=== PATIENT | male | born 1945 | race Caucasian/White ===

== ENCOUNTER → 2018-11-17 13:23 | Outpatient (CLI) | payer MEDICARE, OTHER, SELFPAY ==
--- NOTE | 2018-11-17 | DI.RAD.S_ITS ---
PROCEDURE: XR CHEST 2V INDICATIONS: COUGH TECHNIQUE: 2 views of the chest were acquired. COMPARISON: [facility], , CHEST 2 VIEW, 10/13/2013, 8:48. [facility], CR, CHEST 2 VIEW, 09/18/2012, 15:49. FINDINGS: Surgical changes and devices: None. Lungs and pleura: No pleural effusions or pneumothorax. Lungs are clear. Mediastinum: Mediastinal contours are normal. Heart size is normal. Bones and chest wall: No suspicious bony abnormalities. Soft tissues appear unremarkable. IMPRESSION: Normal for age, source of current cough symptoms is not seen. Dictated by: Guy Sheridan M.D. on 11/17/2018 at 15:14 Approved by: Guy Sheridan M.D. on 11/17/2018 at 15:14
--- NOTE | 2018-11-17 | DI.MRI.S_ITS ---
PROCEDURE: MR HEAD/BRAIN WO/W CON INDICATIONS: VERTIGO/MEMORY LOSS TECHNIQUE: Noncontrast axial T1 spin echo, axial T2 fast spin echo, sagittal and axial FLAIR, coronal T2 fast spin echo, axial gradient echo, axial diffusion and ADC through the brain. After the administration of contrast, axial and coronal T1 spin echo with fat saturation through the brain. COMPARISON: [facility], MR, BRAIN WITHOUT CONTRAST, 11/18/2012, 11:32. [facility], MR, ANGIO HEAD WITHOUT CONTRAST, 11/18/2012, 11:21. FINDINGS: Image quality: Excellent. CSF spaces: Basal cisterns are patent. No extra-axial fluid collections. Ventricles are normal in size and shape. Brain: No midline shift. No intracranial bleeds or masses. No abnormal intracranial enhancement. There is cerebral volume loss for age. There is periventricular white matter chronic small vessel ischemic change. The brainstem appears normal. Diffusion-weighted images demonstrate no acute ischemic insults. No chronic ischemic insults. Normal intravascular flow voids are present. Skull and face: Calvarial marrow is normal in signal. Orbits appear normal. Note is made of bilateral lens replacements. Sinuses: Sinuses and mastoids appear clear. IMPRESSION: Unremarkable intracranial study for age. No masses or abnormal enhancement can be seen. No findings of acute or subacute infarction can be seen. Note is made of age-appropriate brain parenchymal volume loss and chronic small vessel ischemic changes. Dictated by: Trey Castano M.D. on 11/17/2018 at 15:11 Approved by: Trey Castano M.D. on 11/17/2018 at 15:13
== END ==
PROVIDERS: Family Provider Family Medicine Geriatric Medicine; PCP Family Medicine Geriatric Medicine; Visit Provider Family Medicine Geriatric Medicine
DX: H81.49 Vertigo of central origin, unspecified ear (principal); R41.82 Altered mental status, unspecified; R05 Cough; R63.4 Abnormal weight loss
CPT/HCPCS: 70553; 71046; A9579

== ENCOUNTER 2021-04-22 14:02 | Inpatient (IN) | payer MEDICARE, OTHER, SELFPAY ==
--- NOTE | 2021-04-22 16:55 | PM.HP.1 ---
History of Present Illness History of Present Illness Date Patient Seen: 04/22/21 Time Patient Seen: 16:55 Chief complaint: GI Bleed Narrative: This is a 75-year-old male with hypertension and chronic anxiety who presents with sudden onset of bright red blood when he awoke this morning. His clothing was full of blood when he sat down at the toilet. His initial hemoglobin at [facility] emergency department was 13.6. He describes 6 more episodes of bloody stool since then. There has been no abdominal pain, nausea or vomiting. He has no chest pain. He has never had this before. He uses an unclear dose of ?low dose? aspirin 3 or 4 days a week. He takes no other anticoagulants or anti-inflammatories. He drinks 1 cocktail 4-5 days a week. He denies any prior symptoms of alcohol withdrawal although his does make him admit that he becomes even more irritable than usual when he misses his cocktail. He had a rectal exam done in the emergency department which was described as showing brown stool that was heme-positive. He recalls a colonoscopy that he estimates was 5 years ago and was normal. He is quite hard of hearing. He takes citalopram for anxiety and an unknown medication for hypertension. Patient History Medical History (Updated 04/22/21 @ 16:58 by Broderick Ortiz MD) Alcohol use Anxiety Hypertension Surgical History (Updated 04/22/21 @ 16:58 by Broderick Ortiz MD) H/O eye surgery H/O lithotripsy Family & Social History Family History (Updated 04/22/21 @ 17:02 by Broderick Ortiz MD) Mother Diabetes mellitus Heart attack Father Heart attack Social History: His backup decision maker is his Rosario Michel. Dr. 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 ROS: Yes All systems reviewed with the patient and are negative except as otherwise documented Exam Narrative Exam Narrative: He is alert and oriented x3. He is in no apparent distress. He is hard of hearing. He is hyper irritable in a somewhat pleasant way. His is sitting by the bedside and she obviously has inability to be a calming influence. Pupils are equally round reactive to light and accommodation. Extraocular muscles are intact. Sclerae are pink and nonicteric Throat looks normal No lymph nodes are felt head, neck, supraclavicular area There is no thyromegaly No carotid bruits are heard Heart is regular rate and rhythm without murmur Lungs are clear to auscultation bilaterally Abdomen is soft, bowel sounds positive, nontender, no organomegaly. He is underweight. Extremities have no ankle edema Skin has no rash or jaundice Neurological exam Cranial nerves 2-12 test intact There is no asterixis There are no other stigmata of chronic liver disease Deep tendon reflexes are symmetric and normal Motor function is 5/5 throughout There is no tremor. Assessment & Plan Assessment & Plan narrative: This is a 75-year-old male with hypertension and chronic anxiety who presents with sudden onset of bright red blood when he awoke this morning. Initial hemoglobin is 13.6. Lower GI bleed, present on admission. Active. -recheck hemoglobin on arrival here and plan surgery consult if it has dropped. -keep NPO and begin IV Protonix -continue IV fluids -follow serial hemoglobins Hypertension, present on admission. Active -initial vital signs are still pending. Unclear home treatment. Hospital inpatient treatment to be determined -obtain baseline CMP Daily alcohol use, present on admission. Active. -check alcohol level and liver enzymes -consider abdominal pelvic CT scan -use lorazepam IV as needed. -use CIWA orders if needed. Chronic anxiety, present on admission. Chronic. -continue citalopram -use Lorazepam IV as needed Use sequential compression device and avoid anticoagulation due to ongoing bleeding concern.
[2021-04-22] MEDS: DEXTROSE 5%-0.9% NS 1,000 ML 100 ML IV (17:16)
[2021-04-22] MEDS: CITALOPRAM 10 MG TABLET 20 MG PO (17:17)
[2021-04-22 17:46] VITALS: BMI 24.1
[2021-04-22 18:43] LABS: Add Manual Diff / Slide Review NO; Basophils Absolute Auto 0 /uL (0-100); Basophils Percent Auto 0.2 % (0-2); Eosinophils Absolute Auto 0 /uL (0-450); Eosinophils Percent Auto 0.2 % (2-4); Hematocrit 38.4 % (41-53); Hemoglobin 12.9 g/dL (13.5-17.5); Lymphocytes Absolute Auto 1400 /uL (1100-4500); Lymphocytes Percent Auto 19.1 % (25-40); Mean Corpuscular HGB Conc 33.6 % (30-36); Mean Corpuscular Hemoglobin 30.5 PG (26-34); Mean Corpuscular Volume 90.6 fL (80-100); Monocytes Absolute Auto 600 /uL (0-900); Monocytes Percent Auto 7.3 % (3-14); Neutrophils Absolute Auto 5500 /uL (1500-7000); Neutrophils Percent Auto 73.2 % (50-75); Platelet Count 157 X10^3/uL (150-400); Red Blood Cell Count 4.24 X10^6/uL (4.5-5.9); Red Cell Distribution Width 13.2 % (11.6-14.8); White Blood Cell Count 7.5 X10^3/uL (4.5-11.0)
[2021-04-22 18:54] LABS: Ammonia (NH3) < 9 umol/L (9-30)
[2021-04-22 18:55] LABS: Alanine Aminotransferase 21 IU/L (<50); Albumin Globulin Ratio 1.1 (1.0-2.8); Alkaline Phosphatase 80 U/L (38-126); Aspartate Aminotransferase 35 IU/L (17-59); BUN Creatinine Ratio 25.6 (6-22); Bilirubin Total 0.7 mg/dL (0.2-1.3); Blood Urea Nitrogen 20 mg/dL (9-20); Calcium 9.5 mg/dL (8.4-10.2); Carbon Dioxide 25 mmol/L (22-32); Chloride 107 mmol/L (98-107); Estimated Glomerular Filt Rate > 60.0 mL/min (>60); Globulin 3.6 g/dL (1.7-4.1); Glucose 113 mg/dL (80-110); HEMOLYSIS < 15 (0-50); Magnesium 1.8 mg/dL (1.6-2.3); Potassium 4.1 mmol/L (3.4-5.1); Sodium 137 mmol/L (137-145); Total Protein 7.6 g/dL (6.3-8.2)
[2021-04-22 19:01] LABS: Ethanol (ETOH) < 10 mg/dL
[2021-04-22] MEDS: PEG3350/SOD SULF,BICARB,CL/KCL 4,000 ML SOLUTION 2000 ML PO (19:26)
[2021-04-22 20:30] VITALS: BP 138/80; PULSE 65; RESP 18; TEMP 37.1
[2021-04-22 23:38] VITALS: BP 149/85; PULSE 69; RESP 16; TEMP 36.7; O2SAT 100
[2021-04-23] VITALS (12 sets, daily range): BP systolic 124–159; BP diastolic 57–80; PULSE 53–63; RESP 15–22; TEMP 36.4–37.2; O2SAT 96–100; BMI 24.1
[2021-04-23] MEDS: DEXTROSE 5%-0.9% NS 1,000 ML 100 ML IV ×2 (03:49→15:59)
[2021-04-23 06:30] LABS: Add Manual Diff / Slide Review NO; Basophils Absolute Auto 0 /uL (0-100); Basophils Percent Auto 0.1 % (0-2); Eosinophils Absolute Auto 0 /uL (0-450); Eosinophils Percent Auto 0.4 % (2-4); Hematocrit 36.4 % (41-53); Hemoglobin 12.4 g/dL (13.5-17.5); Lymphocytes Absolute Auto 1500 /uL (1100-4500); Lymphocytes Percent Auto 20.6 % (25-40); Mean Corpuscular HGB Conc 34.1 % (30-36); Mean Corpuscular Hemoglobin 30.7 PG (26-34); Monocytes Absolute Auto 700 /uL (0-900); Monocytes Percent Auto 9.3 % (3-14); Neutrophils Absolute Auto 5000 /uL (1500-7000); Neutrophils Percent Auto 69.6 % (50-75); Platelet Count 142 X10^3/uL (150-400); Red Blood Cell Count 4.04 X10^6/uL (4.5-5.9); Red Cell Distribution Width 13.4 % (11.6-14.8); White Blood Cell Count 7.2 X10^3/uL (4.5-11.0)
[2021-04-23 06:32] LABS: Alanine Aminotransferase 18 IU/L (<50); Albumin 3.7 g/dL (3.5-5.0); Albumin Globulin Ratio 1.2 (1.0-2.8); Alkaline Phosphatase 71 U/L (38-126); Aspartate Aminotransferase 35 IU/L (17-59); BUN Creatinine Ratio 20.8 (6-22); Bilirubin Total 0.6 mg/dL (0.2-1.3); Blood Urea Nitrogen 16 mg/dL (9-20); Calcium 8.8 mg/dL (8.4-10.2); Carbon Dioxide 26 mmol/L (22-32); Chloride 109 mmol/L (98-107); Estimated Glomerular Filt Rate > 60.0 mL/min (>60); Globulin 3.2 g/dL (1.7-4.1); Glucose 124 mg/dL (80-110); HEMOLYSIS < 15 (0-50); Potassium 4.8 mmol/L (3.4-5.1); Sodium 141 mmol/L (137-145); Total Protein 6.9 g/dL (6.3-8.2)
--- NOTE | 2021-04-23 08:35 | P.CONS_ITS ---
History of Present Illness Consult details Chief complaint: GI Bleed Meds Home Medications and Allergies Home Medications Medication Instructions Recorded Confirmed Type citalopram 20 mg PO DAILY 04/22/21 04/22/21 History losartan 100 mg PO BEDTIME 04/22/21 04/22/21 History Exam Vital Signs (past 8 hours): - 04/23/21 03:24 04/23/21 07:27 Temperature 98.3 F 97.9 F Pulse Rate 62 63 Respiratory Rate 16 17 Blood Pressure 155/74 H 159/79 H Pulse Oximetry 98 98 Oxygen Flow Rate 0 Resp Effort & Inspection: normal respiratory effort and able to speak in complete sentences Auscultation: clear to auscultation bilaterally Cardio Rate: regular rate Rhythm: regular rhythm GI Inspection: normal to inspection Palpation: soft Neuro General: patient alert and patient oriented x3 Psych Appearance: grossly normal Judgment: judgment good Objective Labs Result Diagrams: 04/23/21 05:45 04/23/21 05:45 Labs: Laboratory Results - last 24 hr 04/22/21 04/22/21 04/22/21 18:30 18:30 18:30 WBC 7.5 RBC 4.24 L Hgb 12.9 L Hct 38.4 L MCV 90.6 MCH 30.5 MCHC 33.6 RDW 13.2 Plt Count 157 Neut % (Auto) 73.2 Lymph % (Auto) 19.1 L [place] % (Auto) 7.3 Eos % (Auto) 0.2 L Baso % (Auto) 0.2 Neut # (Auto) 5500 Lymph # (Auto) 1400 [place] # (Auto) 600 Eos # (Auto) 0 Baso # (Auto) 0 Sodium 137 Potassium 4.1 Chloride 107 Carbon Dioxide 25 BUN 20 Creatinine 0.78 Estimated GFR > 60.0 BUN/Creatinine Ratio 25.6 H Glucose 113 H Calcium 9.5 Magnesium 1.8 Total Bilirubin 0.7 AST 35 ALT 21 Alkaline Phosphatase 80 Ammonia Total Protein 7.6 Albumin 4.0 Globulin 3.6 Albumin/Globulin Ratio 1.1 Ethyl Alcohol < 10 Blood Type Antibody Screen Crossmatch 04/22/21 04/22/21 04/23/21 18:30 18:30 05:45 WBC 7.2 RBC 4.04 L Hgb 12.4 L Hct 36.4 L MCV 90.0 MCH 30.7 MCHC 34.1 RDW 13.4 Plt Count 142 L Neut % (Auto) 69.6 Lymph % (Auto) 20.6 L [place] % (Auto) 9.3 Eos % (Auto) 0.4 L Baso % (Auto) 0.1 Neut # (Auto) 5000 Lymph # (Auto) 1500 [place] # (Auto) 700 Eos # (Auto) 0 Baso # (Auto) 0 Sodium Potassium Chloride Carbon Dioxide BUN Creatinine Estimated GFR BUN/Creatinine Ratio Glucose Calcium Magnesium Total Bilirubin AST ALT Alkaline Phosphatase Ammonia < 9 L Total Protein Albumin Globulin Albumin/Globulin Ratio Ethyl Alcohol Blood Type A Positive Antibody Screen Negative Crossmatch See Detail 04/23/21 05:45 WBC RBC Hgb Hct MCV MCH MCHC RDW Plt Count Neut % (Auto) Lymph % (Auto) [place] % (Auto) Eos % (Auto) Baso % (Auto) Neut # (Auto) Lymph # (Auto) [place] # (Auto) Eos # (Auto) Baso # (Auto) Sodium 141 Potassium 4.8 Chloride 109 H Carbon Dioxide 26 BUN 16 Creatinine 0.77 Estimated GFR > 60.0 BUN/Creatinine Ratio 20.8 Glucose 124 H Calcium 8.8 Magnesium Total Bilirubin 0.6 AST 35 ALT 18 Alkaline Phosphatase 71 Ammonia Total Protein 6.9 Albumin 3.7 Globulin 3.2 Albumin/Globulin Ratio 1.2 Ethyl Alcohol Blood Type Antibody Screen Crossmatch Assessment & Plan Assessment & Plan narrative: Bright red blood per rectum. Drop in hgb. No hypotension so far. h/o ETOH Plan: colonoscopy with anesthesia COVID-19 COVID-19 status: Negative Time Spent With Patient Time with patient: 15-24 minutes
[2021-04-23] MEDS: LACTATED RINGERS 1,000 ML 42 ML IV (08:46)
--- NOTE | 2021-04-23 09:17 | PM.OP.1 ---
Operative Date/Time/Diagnoses Date of procedure: 04/23/21 Time of procedure: 09:18 Pre-op diagnosis: GI bleed Post-op diagnosis: same Procedure & Clinicians Procedure: colonoscopy with anesthesia Same procedure as scheduled: Yes Indications: GI bleed Surgeon: Caryn Arzate Click Yes if Unassisted: Yes Anesthesia Type: MAC +/- Operative Notes Findings: Ischemic colitis, no necrosis. Sigmoid colon form 10cm to 30cm Specimen(s): none sent Blood products transfused: none Procedure in detail: Prep diagnosis: GI bleed Postop diagnosis: Same Operative procedure: Colonoscopy with anesthesia Surgeon: Amita Arzate MD Findings: Ischemic colitis extending from 10 cm up to 30 cm in the descending colon. No evidence of necrosis Procedure: Patient placed in lateral position. Rectal exam was performed showing decreased tone. Grade 2 hemorrhoids. No masses. Scope was inserted into the rectum and advanced to ileocecal valve with minimal difficulty. It was clear on passing the scope through the sigmoid colon we were dealing with ischemic colitis. No evidence of necrosis. Once we get this ileocecal valve. Insufflation and extraction of the scope with the above findings. Due to mild lack of rectal tone unable to perform retroflex of the rectum. Digital exam is repeated Impression: Ischemic colitis, no polyps found. Moderate diverticulosis of the descending colon. Plan: Conservative management. Repeat colonoscopy in 10 years unless otherwise indicated by change in family history or clinical condition Complications: none Post-operative Condition: stable Disposition: PACU Plan for aftercare: inpatient admission
--- NOTE | 2021-04-23 09:34 | SUR.PHASEI ---
Stable post op. To acute care.
--- NOTE | 2021-04-23 09:50 | SUR.PHASEI ---
Pt left with Mary in stable condition.
[2021-04-23] MEDS: CITALOPRAM 10 MG TABLET 20 MG PO (10:15)
[2021-04-23] MEDS: PANTOPRAZOLE 40 MG VIAL IV (10:15)
--- NOTE | 2021-04-23 10:58 | CM.DANOTE ---
DCP: Case received, EMR reviewed. Patient was downstairs having his colonoscopy, but patient's , Caryn, was at bedside. Introduced self and role. Was able to obtain information from patient's spouse regarding patient's baseline activity level prior to hospitalization. DCP assessment completed with information currently available. Patient is a 75 year old male who admitted yesterday afternoon to the care of the hospitalist. Patient was sent over from [facility] in secondary to GI bleed. He was a direct admit here to the hospital. Patient is here for a GI bleed. Patient has history of anxiety, as well as some memory loss. He does drink alcohol, according to , he has a cocktail at dinner, she does not seem to think he has any drinking problems. Patient is also hard of hearing. Met with patient's in the room. She indicated that she had been on vacation in [facility], and came back early. Their son, who lives next door to them, had brought him here to the hospital. Patient indicated that her gets anxious when she is gone. Patient is independent, does not use any DME supplies. Son lives next door, and is helpful and supportive. They reside in [place]. P: DCP to continue to follow for any needs. Patient should be able to go home when he is deemed medically stable. Tianna Raygoza RN/Shuttle Filler
--- NOTE | 2021-04-23 12:52 | P.PN_ITS ---
Subjective Subjective Date Patient Seen: 04/23/21 Interval history: He is seen today to follow-up the GI bleeding. The hemoglobin has dropped from 12.9 down to 12.4 overnight. The platelets are 142 and the glucose is 124 with an otherwise normal CMP. The ammonia level is less than 9. His colonoscopy shows ischemic colitis in the sigmoid colon without any other source of GI bleeding. His blood pressure is 159/79. He remains quite agitated and he needs reassurance frequently. Exam Vital Signs (past 8 hours): - 04/23/21 07:27 04/23/21 08:40 04/23/21 09:16 Temperature 97.9 F 97.6 F 98.5 F Pulse Rate 63 63 59 L Respiratory Rate 17 20 19 Blood Pressure 159/79 H 157/59 H 151/72 H Pulse Oximetry 98 99 100 04/23/21 09:21 04/23/21 09:26 04/23/21 09:45 Temperature 98 F Pulse Rate 55 L 58 L 58 L Respiratory Rate 17 22 15 Blood Pressure 147/70 H 124/68 154/75 H Pulse Oximetry 100 98 100 04/23/21 11:28 Temperature 98 F Pulse Rate 54 L Respiratory Rate 15 Blood Pressure 148/76 H Pulse Oximetry 100 Oxygen Delivery Method Room Air Oxygen Flow Rate 0 Narrative Exam Narrative: He is alert and oriented x3. He is in mild distress from everything that seems to be ?happening to him? Heart is regular rate rhythm without murmur Lungs are clear to auscultation Abdomen is soft, bowel sounds positive, nontender, no organomegaly Extremities have no ankle edema Objective Imaging Colonoscopy: My impression: Operative Notes Findings: Ischemic colitis, no necrosis. Sigmoid colon form 10cm to 30cm Specimen(s): none sent Blood products transfused: none Procedure in detail: Prep diagnosis: GI bleed Postop diagnosis: Same Operative procedure: Colonoscopy with anesthesia Surgeon: Amita Arzate MD Findings: Ischemic colitis extending from 10 cm up to 30 cm in the descending colon. No evidence of necrosis Labs Result Diagrams: 04/23/21 05:45 04/23/21 05:45 Labs: Laboratory Results - last 24 hr 04/22/21 04/22/21 04/22/21 18:30 18:30 18:30 WBC 7.5 RBC 4.24 L Hgb 12.9 L Hct 38.4 L MCV 90.6 MCH 30.5 MCHC 33.6 RDW 13.2 Plt Count 157 Neut % (Auto) 73.2 Lymph % (Auto) 19.1 L [place] % (Auto) 7.3 Eos % (Auto) 0.2 L Baso % (Auto) 0.2 Neut # (Auto) 5500 Lymph # (Auto) 1400 [place] # (Auto) 600 Eos # (Auto) 0 Baso # (Auto) 0 Sodium 137 Potassium 4.1 Chloride 107 Carbon Dioxide 25 BUN 20 Creatinine 0.78 Estimated GFR > 60.0 BUN/Creatinine Ratio 25.6 H Glucose 113 H Calcium 9.5 Magnesium 1.8 Total Bilirubin 0.7 AST 35 ALT 21 Alkaline Phosphatase 80 Ammonia Total Protein 7.6 Albumin 4.0 Globulin 3.6 Albumin/Globulin Ratio 1.1 Ethyl Alcohol < 10 Blood Type Antibody Screen Crossmatch 04/22/21 04/22/21 04/23/21 18:30 18:30 05:45 WBC 7.2 RBC 4.04 L Hgb 12.4 L Hct 36.4 L MCV 90.0 MCH 30.7 MCHC 34.1 RDW 13.4 Plt Count 142 L Neut % (Auto) 69.6 Lymph % (Auto) 20.6 L [place] % (Auto) 9.3 Eos % (Auto) 0.4 L Baso % (Auto) 0.1 Neut # (Auto) 5000 Lymph # (Auto) 1500 [place] # (Auto) 700 Eos # (Auto) 0 Baso # (Auto) 0 Sodium Potassium Chloride Carbon Dioxide BUN Creatinine Estimated GFR BUN/Creatinine Ratio Glucose Calcium Magnesium Total Bilirubin AST ALT Alkaline Phosphatase Ammonia < 9 L Total Protein Albumin Globulin Albumin/Globulin Ratio Ethyl Alcohol Blood Type A Positive Antibody Screen Negative Crossmatch See Detail 04/23/21 05:45 WBC RBC Hgb Hct MCV MCH MCHC RDW Plt Count Neut % (Auto) Lymph % (Auto) [place] % (Auto) Eos % (Auto) Baso % (Auto) Neut # (Auto) Lymph # (Auto) [place] # (Auto) Eos # (Auto) Baso # (Auto) Sodium 141 Potassium 4.8 Chloride 109 H Carbon Dioxide 26 BUN 16 Creatinine 0.77 Estimated GFR > 60.0 BUN/Creatinine Ratio 20.8 Glucose 124 H Calcium 8.8 Magnesium Total Bilirubin 0.6 AST 35 ALT 18 Alkaline Phosphatase 71 Ammonia Total Protein 6.9 Albumin 3.7 Globulin 3.2 Albumin/Globulin Ratio 1.2 Ethyl Alcohol Blood Type Antibody Screen Crossmatch [facility] Medical History Alcohol use Anxiety Hypertension Surgical History H/O eye surgery H/O lithotripsy Family History Mother Diabetes mellitus Heart attack Father Heart attack Social History household members: spouse Smoking Status: Never smoker alcohol intake: current Assessment & Plan Assessment & Plan narrative: This is a 75-year-old male with hypertension and chronic anxiety who presents with sudden onset of bright red blood when he awoke this morning. The initial hemoglobin is 13.6. Lower GI bleed of Ischemic Colitis, present on admission. Active. -colonoscopy shows a large area of ischemic colitis in the sigmoid colon -hemoglobin stable at 12.4 -will begin a soft diet and plan discharge back to [place] if he tolerates that well without recurrent bleeding. Hypertension, present on admission. Active -begin back on home losartan 100 mg daily Daily alcohol use, present on admission. Active. -check alcohol level and liver enzymes -consider abdominal pelvic CT scan -use lorazepam IV as needed. -use CIWA orders if needed. Chronic anxiety, present on admission. Chronic. -continue citalopram -use Lorazepam IV as needed Memory Loss, present on admission. Active. -His describes that he forgets many things -He is 3/3 on immediate recall and 0/3 on delayed recall -Consider brain imaging -suspect related to lifelong daily alcohol use or some other primary neurologic process -Ammonia <9 Use sequential compression device and avoid anticoagulation due to ongoing bleeding concern.
--- NOTE | 2021-04-23 13:40 | PC.NURSE ---
Patient VSS this shift, Tele: sinus mao this shift. Patient has had no episodes of bloody stools. Patient states that bowel movements are back to normal after colonoscopy. Patient was advanced to low fiber/low residual diet but states that he doesn't have much of an appetite. Patient is forgetful and impulsive at times, and has to be reminded to use the call light, bed alarm is active. Patient is very hard of hearing and has bilateral hearing aids.
[2021-04-23] MEDS: LOSARTAN 50 MG TABLET 100 MG PO (22:08)
[2021-04-23] MEDS: LORazepam 2 MG/ML INJ 0.5 MG IV (22:08)
[2021-04-24] MEDS: DEXTROSE 5%-0.9% NS 1,000 ML 100 ML IV (01:57)
[2021-04-24] MEDS: LORazepam 2 MG/ML INJ 0.5 MG IV (02:30)
--- NOTE | 2021-04-24 03:17 | PC.NURSE ---
Patient began to become restless and was increasingly trying to get out of bed to use the bathroom even though he had just gotten up. Patient was getting agitated with [employer]IC[employer], support person, and nurse when told he needed to wait for assistance to walk to the bathroom to help with the IV pole and ensure he does not fall. 0.5mg of PRN Ativan was given to help relax the patient. At patient check after medication administration, patient was sleeping and resting in bed.
[2021-04-24] MEDS: HALOPERIDOL 5 MG/ML VIAL IV (04:40)
[2021-04-24 05:43] LABS: Bacteria Urine None Seen; WBC Urine None Seen (0-5/HPF)
[2021-04-24 05:57] VITALS: BP 129/85; PULSE 68; RESP 16; TEMP 36.7; O2SAT 98
[2021-04-24 06:34] LABS: Add Manual Diff / Slide Review NO; Basophils Absolute Auto 0 /uL (0-100); Basophils Percent Auto 0.6 % (0-2); Eosinophils Absolute Auto 0 /uL (0-450); Eosinophils Percent Auto 0.7 % (2-4); Hematocrit 34.7 % (41-53); Hemoglobin 11.8 g/dL (13.5-17.5); Lymphocytes Absolute Auto 900 /uL (1100-4500); Lymphocytes Percent Auto 15.2 % (25-40); Mean Corpuscular HGB Conc 34.1 % (30-36); Mean Corpuscular Hemoglobin 30.8 PG (26-34); Mean Corpuscular Volume 90.1 fL (80-100); Monocytes Absolute Auto 500 /uL (0-900); Monocytes Percent Auto 8.5 % (3-14); Neutrophils Absolute Auto 4600 /uL (1500-7000); Platelet Count 128 X10^3/uL (150-400); Red Blood Cell Count 3.84 X10^6/uL (4.5-5.9); Red Cell Distribution Width 13.3 % (11.6-14.8); White Blood Cell Count 6.1 X10^3/uL (4.5-11.0)
[2021-04-24 06:59] LABS: Culture Indicated Urine Cult Not Indicated; RBC Urine 1-5/HPF (0-5/HPF)
[2021-04-24 07:20] LABS: Prostate Specific Antigen 1.24 ng/mL (0.10-4.00)
[2021-04-24 07:54] VITALS: BP 125/57; PULSE 55; RESP 16; TEMP 36.6; O2SAT 97
[2021-04-24] MEDS: PANTOPRAZOLE 40 MG VIAL IV (10:05)
[2021-04-24] MEDS: CITALOPRAM 10 MG TABLET 20 MG PO (10:05)
[2021-04-24 11:00] VITALS: BP 130/62; PULSE 60; RESP 16; TEMP 36.4; O2SAT 99
[2021-04-24 12:06] VITALS: PULSE 55; RESP 16; O2SAT 97
--- NOTE | 2021-04-24 12:09 | P.DS_ITS ---
History of Present Illness History of Present Illness Chief complaint: GI Bleed Narrative: This is a 75-year-old male with hypertension and chronic anxiety who presents with sudden onset of bright red blood when he awoke this morning. His clothing was full of blood when he sat down at the toilet. His initial he moglobin at [facility] emergency department was 13.6. He describes 6 more episodes of bloody stool since then. There has been no abdominal pain, nausea or vomiting. He has no chest pain. He has never had this before. He uses an unclear dose of ?low dose? aspirin 3 or 4 days a week. He takes no other anticoagulants or anti-inflammatories. He drinks 1 cocktail 4-5 days a week. He denies any prior symptoms of alcohol withdrawal although his does make him admit that he becomes even more irritable than usual when he misses his cocktail. He had a rectal exam done in the emergency department which was described as showing brown stool that was heme-positive. He recalls a colonoscopy that he estimates was 5 years ago and was normal. He is quite hard of hearing. He takes citalopram for anxiety and an unknown medication for hypertension Discharge Providers Provider Date of admission: 04/22/21 14:02 Discharge Date: 04/24/21 Primary care physician: Jenny Morales MD Consults: 04/22/21 16:50 Consult to General Surgery Routine Comment: Consulting Provider: Caryn Arzate Reason for consultation: LGI bleed Has provider been notified: Yes Discharge provider: Annie Sweet MD Summary Hospital Course Discharge Diagnosis: 1. Rectal bleeding secondary to ischemic colitis 2. Hypertension 3. Chronic daily alcohol use 4. Anxiety 5. Memory loss Hospital Course: Patient was admitted to the hospital for rectal bleeding. He underwent colonoscopy under anesthesia which revealed ischemic colitis extending from 10 cm up to 30 cm in the descending colon. Patient remained on IV hydration. His hemoglobin remains stable. His rectal bleeding discontinued. The patient did have some agitation and irritability during the hospital stay. He was medicated for that. The patient's hemoglobin on the day of discharge was 11.8 with a hematocrit of 34.7. Hemoglobin 12.9 and 38.4 on admission. Patient had no further complaints and was deemed appropriate for discharge. He will follow-up with his primary care provider Dr. greene on Saturday. Status at Discharge Cognitive/behavioral status at discharge: confused Functional status at discharge: independent ambulation Overall status at discharge: patient is back to baseline Time Spent with Patient Time spent: Less than 30 minutes Exam Vital Signs (past 8 hours): - 04/24/21 05:57 04/24/21 07:54 04/24/21 12:06 Temperature 98.1 F 97.8 F Pulse Rate 68 55 L 55 L Respiratory Rate 16 16 16 Blood Pressure 129/85 125/57 L Pulse Oximetry 98 97 97 Oxygen Delivery Method Room Air Oxygen Flow Rate 0 Narrative Exam Narrative: Confused elderly male lying in bed in no acute distress Lungs: Clear to auscultation Cardiac exam: Regular rate and rhythm normal S1-S2 Abdomen: Soft nontender nondistended, no hepatosplenomegaly, no rebound tenderness, no board-like rigidity Extremities: No edema Objective Labs Result Diagrams: 04/24/21 06:10 04/23/21 05:45 Labs: Laboratory Results - last 24 hr 04/22/21 04/24/21 04/24/21 18:30 05:30 06:10 WBC 6.1 RBC 3.84 L Hgb 11.8 L Hct 34.7 L MCV 90.1 MCH 30.8 MCHC 34.1 RDW 13.3 Plt Count 128 L Neut % (Auto) 75.0 Lymph % (Auto) 15.2 L [place] % (Auto) 8.5 Eos % (Auto) 0.7 L Baso % (Auto) 0.6 Neut # (Auto) 4600 Lymph # (Auto) 900 L [place] # (Auto) 500 Eos # (Auto) 0 Baso # (Auto) 0 Prostate Specific Ag Urine RBC 1-5/hpf Urine WBC None seen Urine Bacteria None seen Ur Culture Indicated? Cult not indicated Crossmatch See Detail 04/24/21 06:10 WBC RBC Hgb Hct MCV MCH MCHC RDW Plt Count Neut % (Auto) Lymph % (Auto) [place] % (Auto) Eos % (Auto) Baso % (Auto) Neut # (Auto) Lymph # (Auto) [place] # (Auto) Eos # (Auto) Baso # (Auto) Prostate Specific Ag 1.24 Urine RBC Urine WBC Urine Bacteria Ur Culture Indicated? Crossmatch [facility] Medical History Alcohol use Anxiety Hypertension Surgical History H/O eye surgery H/O lithotripsy Family History Mother Diabetes mellitus Heart attack Father Heart attack Social History household members: spouse Smoking Status: Never smoker alcohol intake: current Discharge Assessment & Plan Assessment and Plan Assessment: 1. Ischemic colitis 2. Hypertension 3. Alcohol dependence 4. Anxiety 5. Probable dementia Plan of Treatment: Discharge home Follow-up with Dr. greene in 1-2 weeks Discharge Plan Discharge Plan Patient Disposition: Home Discharge orders & Medications Prescriptions: Continued citalopram 20 mg tablet 20 mg PO DAILY RF: 0 losartan 100 mg tablet 100 mg PO BEDTIME RF: 0 Follow up/Referrals: Jenny Morales MD [Primary Care Provider] - Discharge Health Status Multidrug resistant organism: No MDRO Diet/Activity/Treatments Diet: Diet as Tolerated Skin/Wound/Dressing Care Report to your healthcare provider any signs of infection, such as:: chills, fever Discharge Data Primary Care Provider: Jenny Morales
--- NOTE | 2021-04-24 13:52 | PC.NURSE ---
Discharge note: Patient discharge per MD order, discharge instructions given to both patient and spouse. Discussed importance of F/U with PMD and urology. Dressed with moderate amount of assistance. Discussed importance of signs of worsening symptoms, home safety and medication adherence. PVR < 200 ml. Discharge home to [place] via private vehicle accompanied by Rosario. Priority boarding pass on hand and all belongings with patient.
== END 2021-04-24 13:56 | disposition home or self-care (01) | DRG 394 ==
PROVIDERS: Nurse Practitioner Family; Surgery; Admitting Provider Family Medicine; Family Provider Family Medicine Geriatric Medicine; PCP Family Medicine Geriatric Medicine; Referring Provider Family Medicine; Visit Provider Family Medicine
PROC: 0DJD8ZZ Inspection of Lower Intestinal Tract, Via Natural or Artificial Opening Endoscopic (ICD-10-PCS; CPT 45378; principal; 2021-04-23 09:00)
DX: K55.9 Vascular disorder of intestine, unspecified (principal); K92.2 Gastrointestinal hemorrhage, unspecified; I10 Essential (primary) hypertension; R41.3 Other amnesia; F41.9 Anxiety disorder, unspecified; Z20.822 Contact with and (suspected) exposure to COVID-19; F03.90 Unspecified dementia, unspecified severity, without behavioral disturbance, psychotic disturbance, mood disturbance, and anxiety; F10.20 Alcohol dependence, uncomplicated
CPT/HCPCS: 36415; 45378; 80053; 80320; 81015; 82140; 83735; 84153; 85025; 86850; 86900; 86901; 93005; 94762; 99232; C9113; J1630; J2060